=== PATIENT | female | born 1990 | race Caucasian/White ===

== ENCOUNTER 2023-06-07 08:50 | Outpatient (CLI) | payer OTHER, SELFPAY | END 2023-06-07 08:51 | disposition home or self-care (01) | PROVIDERS: Visit Provider Nurse Practitioner Family | DX: M54.9 Dorsalgia, unspecified (principal) | CPT/HCPCS: 86200 ==

== ENCOUNTER 2023-07-15 14:15 | Outpatient (CLI) | payer OTHER, SELFPAY ==
[2023-07-15 19:26] LABS: Strep A DNA Probe* NOT DETECTED (Not Detectd)
== END 2023-07-15 14:16 | disposition home or self-care (01) ==
PROVIDERS: Visit Provider Nurse Practitioner Family
DX: J02.9 Acute pharyngitis, unspecified (principal)
CPT/HCPCS: 87070; 87651

== ENCOUNTER 2023-09-22 08:30 | Outpatient (CLI) | payer OTHER, SELFPAY ==
--- NOTE | 2023-09-22 08:45 | CRLHL7_ITS ---
For Patients: As a result of the Cures Act, medical imaging exams and procedure reports are released immediately into your electronic medical record. You may view this report before your referring provider. If you have questions, please contact your health care provider. DIGITAL DIAGNOSTIC RIGHT MAMMOGRAM USING TOMOSYNTHESIS AND COMPUTER-AIDED DETECTION RIGHT AXILLARY ULTRASOUND CLINICAL HISTORY: RIGHT breast lump. COMPARISON: None. TECHNIQUE: Digital RIGHT mammogram in three projections. Tomosynthesis and CAD utilized. Real-time ultrasound imaging of RIGHT axilla with imaging documentation. BREAST COMPOSITION: The breast is heterogeneously dense, which may obscure small masses. FINDINGS: 3D RIGHT breast mammogram images submitted. No suspicious masses or architectural distortion. No suspicious calcifications. Targeted sonogram RIGHT axilla performed in area of concern. Normal lymph nodes are present. No suspicious findings. IMPRESSION: No evidence of malignancy. RECOMMENDATIONS: Age-appropriate screening mammography. Results and recommendations discussed with the patient. BI-RADS Category 2: Benign A lay language report of this examination will be provided to the patient. Dictated by Anand Lee MD @ 09/22/2023 9:39:51 AM jj/Dictated by: Anand Lee MD @ 09/22/2023 9:39:00 AM (Electronically Signed)
--- NOTE | 2023-09-22 09:15 | CRLHL7_ITS ---
For Patients: As a result of the Cures Act, medical imaging exams and procedure reports are released immediately into your electronic medical record. You may view this report before your referring provider. If you have questions, please contact your health care provider. PLEASE SEE DIGITAL DIAGNOSTIC RIGHT MAMMOGRAM PERFORMED SAME DAY CRL:[email or web address] roberts/Dictated by: Anand Lee MD @ 09/22/2023 9:39:00 AM (Electronically Signed)
== END 2023-09-22 08:31 | disposition home or self-care (01) ==
LOC: MAMMO 08:31
PROVIDERS: PCP Nurse Practitioner Family; Visit Provider Nurse Practitioner Family
DX: R22.31 Localized swelling, mass and lump, right upper limb (principal); N63.10 Unspecified lump in the right breast, unspecified quadrant
CPT/HCPCS: 76882; 77065; G0279

== ENCOUNTER 2024-01-19 15:45 | Outpatient (CLI) | payer OTHER, SELFPAY | END 2024-01-19 15:46 | disposition home or self-care (01) | PROVIDERS: PCP Nurse Practitioner Family; Visit Provider Nurse Practitioner Family | DX: N93.8 Other specified abnormal uterine and vaginal bleeding (principal) | CPT/HCPCS: 84443; 85025 ==

== ENCOUNTER 2025-01-31 15:15 | Outpatient (CLI) | payer BC, SELFPAY ==
--- NOTE | 2025-01-31 15:30 | CRLHL7_ITS ---
For Patients: As a result of the Century Cures Act, medical imaging exams and procedure reports are released immediately into your electronic medical record. You may view this report before your referring provider. If you have questions, please contact your health care provider. INDICATION: Low back pain. Lower extremity weakness TECHNIQUE: Noncontrast sagittal and axial T1, T2, and sagittal STIR sequences are provided. No comparisons. FINDINGS: The overall stature, alignment and intrinsic marrow signal of the lumbar spine is within normal limits. Conus is normal. L4-5: Trivial broad-based posterior disc bulge results in no central canal or foraminal narrowing. L5-S1: Tiny posterior central disc bulge with underlying annular tear effaces the ventral thecal sac but results in no significant central canal or foraminal narrowing. Remainder of the lumbar spine is unremarkable, specifically no evidence of suspicious central canal or foraminal narrowing. IMPRESSION: 1. Minor discogenic degenerative change at L4-5, L5-S1 resulting in no significant central canal or foraminal narrowing. Dictated by Tin Phoenix MD @ 01/31/2025 4:59:29 PM (Electronically Signed)
== END 2025-01-31 15:16 | disposition home or self-care (01) ==
LOC: MRI 15:17
PROVIDERS: PCP Nurse Practitioner Family; Visit Provider Nurse Practitioner Family
DX: M79.606 Pain in leg, unspecified (principal); M51.369 Other intervertebral disc degeneration, lumbar region without mention of lumbar back pain or lower extremity pain; M54.50 Low back pain, unspecified
CPT/HCPCS: 72148

== ENCOUNTER 2025-02-22 19:54 | Outpatient (CLI) | payer BC, SELFPAY ==
--- OUTSIDE RECORDS SUMMARY | 2025-02-22 08:34 | XMS_ITS | Clinical Summary ---
Author Organization [employer] [facility] Address [address] [place] [id number] Care Team Providers Care District Supervisor Name Role Phone [facility] - Primary Ca re Provider Allergies No known active allergies Medications vit/iron fum/folic ac ( 1 + 1 ORAL)Indication s: Take 1 Tablet by mouth. Active dibucaine 1% topical (NUPERCAINAL) 1 % ointmentIndicat ions:Vaginal delivery (HC) Apply topically to affected area(s) each time if needed (discomfort - swelling). 28 g 2 Active glycerin-witch iBanka (TUCKS) padIndications: Vaginal delivery (HC) Apply 1 Applicator topically to affected area(s) every hour while awake as needed (itching). 100 Each 2 Active ibuprofen (ADVIL; MOTRIN) 400 mg tabletIndicatio ns:Vaginal delivery (HC) Take 1-2 Tablets (400-800 mg) by mouth every 6 hours if needed for Pain (For moderate pain). 30 Tablet 2 Active ibuprofen (ADVIL; MOTRIN) 600 mg tabletIndicatio ns:Vaginal delivery (HC) Take 1 Tablet (600 mg) by mouth every 6 hours if needed for Pain. Maximum of 3200 mg in 24 hours. 30 Tablet 2 Active oxyCODONE (ROXICODONE) 5 mg immediate release tabletIndicatio ns:S/P tubal ligation Take 1-2 Tablets (5-10 mg) by mouth every 4 hours if needed for Pain (For moderate to severe pain not controlled with ibuprofen and acetaminophen.) . 5 Tablet 2 Active Active Problems Problem Noted Date Diagnosed Date Vaginal delivery 11/26/2021 Trauma during 11/17/2021 Overview (11/17/2021): Fall Encounter for supervision of other normal , unspecified trimester 03/22/2019 Overview (11/17/2021): [id number], history of 1 VAVD for prolonged second stage followed by JACOB: by LMP and FTU Rubella immune, Rh pos anatomy scan: normal, anterior placenta, male OGTT: 113 Hb at 28 weeks: 12.0 Tdap on: 09/11/2021 GBS: pending 11/03 Covid Vaccine: completed x3 Influenza vaccine: 05/21/21 PPBC: Resolved Problems Problem Noted Date Diagnosed Date Resolved Date Vaginal delivery 10/17/2019 11/17/2021 Appendicitis 03/26/2016 10/17/2019 Immunizations Immunization Administration Dates Next Due DTP 12/08/1992, 2,1991,07/20 DTaP 12/08/1995 HIB PRP-OMP (PedvaxHIB) 08/21/1992,11/08,1991,07/20 Hepatitis B, Unspecified 06/24/2004,01/23/2004,0 12/23/2003 Human Papilloma Virus Vaccine 01/22/2008, 008,07/31/2007 Influenza Virus, Unspecified 06/01/2017, 08/15/2013,07/18/2010,05/30 Influenza, IIV4 06/01/2017 Influenza, Injectable, Mdck, Quadrivalent, W/preservative 2021 MMR 12/23/2003,08/21/1992 Meningococcal Vaccine (Menactra) 03/17/2010 Oral Polio Vaccine 12/08/1995, 3,1991,07/20 Td (Age >=7 Years) 12/23/2003 Tdap 09/11/2021, 9,09/22/2017,08/15 Tetanus/Diptheria 08/15/2013 Family History Medical History Relation Name Comments Good Health Brother Good Health Father Good Health Mother Relation Name Status Comments Brother Father Mother Social History Tobacco Use Types Packs/Day Years Used Date Smoking Tobacco: Never Smokeless Tobacco: Never Tobacco Cessation:Counseling Given: Yes Alcohol Use Standard Drinks/Week Comments Not Currently 3 (1 standard drink = 0.6 oz pur e alcohol) socially Comments No Sex and Gender Information Value Date Recorded Sex Assigned at Not on file Legal Sex Female 6:59 AM COLD FOOD PACKER Gender Identity Not on file Sexual Orientation Not on file Occupation Industry Job Start Date Job End Date student Not on file Not on file Not on file Obstetrics History Para Term AB IAB SAB Ectopic Multiple Livin g Live Births 3 3 3 0 0 0 0 0 0 3 3 Date Outcome GA Total Labor Labor/2nd/3rd Weight Sex Type Anes PTL Danielle A1 A5 Name Clin 2017 Term 39w 2d 2.93 kg (6 lb 7.4 oz) F Vag-V acuum Epidur al,IV Meds N Livin g 7 9 ROD ,BG JOSEPHINE Carrillo on Complications:None Delivery Location:[facility] ([facility]) 2019 Term 39w 3d 3.58 kg (7 lb 14.3 oz) M Vag Epidur al N Livin g 6 9 ROD ,NANCY Carrillo on Complications:None Delivery Location:[facility]) 2021 Term 39w 0d 5h 11m 5h 01m/0h 07m/0h 03m 3.64 kg (8 lb 0.4 oz) M Vag-S pont Epidur al Livin g 8 9 WANALANIS ,Osvaldo Rm MD Complications:None Delivery Location:Hospital ( [facility] IP) Last Filed Vital Signs Vital Sign Reading Time Taken Comments Blood Pressure 99/57 11/28/2021 8:00 AM CDT Pulse 69 11/28/2021 8:00 AM CDT Temperature 36.6 C (97.8 F) 11/28/2021 8:00 AM CDT Respiratory Rate 18 11/28/2021 8:00 AM CDT Oxygen Saturation 99% 11/27/2021 5:00 PM CDT Inhaled Oxygen Concentration - - Weight 80 kg (176 lb 5.9 oz) 09/10/2019 10:50 AM COLD FOOD PACKER Height 162.6 cm (5' 4) 11/17/2021 9:23 AM CDT Body Mass Index 29.35 09/10/2019 10:50 AM COLD FOOD PACKER Plan of Treatment Health Maintenance Due Date Last Done Comments Depression screening for age 12+ 2003 Hepatitis C screening for age 18-79 2009 BMI (ht and wt on same day) for age 18+ 03/09/2018 03/09/2017 Pap test for age 21-65 09/12/2018 09/12/2015, 2015 COVID-19 vaccine series ( season) 2024 07/01/2021, 11/04/2020, 10/08/2020 Influenza Vaccine (Season Ended) 2025 2021, 06/01/2017, 06/01/2017, Additional history exists Tetanus booster 09/11/2031 09/11/2021, 07/07, 09/22/2017, Additional history exists Hepatitis B series for 19+ Completed 06/24, 01/23/2004, 12/23/2003 HIV for age 15-65 Completed 04/28/2021, 03/05/2021 Tdap Completed 09/11/2021, 07/07, 09/22/2017, Additional history exists Pneumococcal series for age 6-49 Aged Out No longer eligible based on patient's age to complete this topic Procedures Procedure Name Priority Date/Time Associated Diagnosis Comments HIV EXTERNAL Routine 04/28/2021 RESIDENTIAL INSTALLER THIN PREP PAP SCREEN IMAGED Routine 09/12/2015 8:30 AM COLD FOOD PACKER from Last 3 Months or Most Recently Relevant to Health Maintenance Results * HIV EXTERNAL (04/28/2021) EXTERNAL HIV Negative OTHER-N OT LISTED-ADD NARRATIVE DETAILS Blood BLOOD SPECIMEN / Unknown Narrative Resulting Agency Comment Notice: This testing was ordered by an outside provider and performed by [facility] @ [place]. The original result report can be found in the patient record as a CareEverywhere 04/28/21 result from 11/03/21. Chitra Palafox RN .................... 11/17/2021 11:18 AM us Gita Solomon MD LABORATORY Final R esult OTHER-NOT LISTED-ADD NARRATIVE DETAILS * RESIDENTIAL INSTALLER THIN PREP PAP SCREEN IMAGED (09/12/2015 8:30 AM COLD FOOD PACKER) RESIDENTIAL INSTALLER CYTOLOGY See Anatomic Pathology case 09/17/2015 8:00 PM COLD FOOD PACKER [facility] Specimen (specimen) (Cervical) Client Collect / Unknown 09/12/2015 8:30 AM COLD FOOD PACKER 09/12/2015 7:16 PM COLD FOOD PACKER us Nita May MD PATHOLOGY/CYTOLOGY Final Result [facility] [address] [place] [address], [place] from Last 3 Months or Most Recently Relevant to Health Maintenance Insurance PREFERRED ONE-OPEN ACCESS PREFERRED ONE-OPEN ACCESS PREFERRED ONE-OPEN ACCESS Advance Directives * Full Code (Latest Code Status on File) Date Activated Date Inactivated Comments 11/26/2021 1:09 PM 11/28/2021 2:40 PM Question Answer Comments Code Status Discussion: Discussed * Full Code Date Activated Date Inactivated Comments 10/17/2019 10:46 AM 10/19/2019 12:00 PM Question Answer Comments Code Status Discussion: Discussed * Full Code Date Activated Date Inactivated Comments 12/08/2017 7:20 PM 12/10/2017 1:21 PM * Full Code Date Activated Date Inactivated Comments 12/07/2017 4:58 PM 12/07/2017 5:28 PM * Full Code Date Activated Date Inactivated Comments 12/03/2017 1:45 PM 12/03/2017 4:59 PM Question Answer Comments Code Status Discussion: Not Discussed Care Teams District Supervisor Relationship Specialty Start Date End Date [facility] - PCP - General 06/29/21
--- OUTSIDE RECORDS SUMMARY | 2025-02-23 00:19 | XMS_ITS | Clinical Summary ---
Author Organization [facility] Address [address] [place] [id number] Care Team Providers Care Technical Supervisor Name Role Phone [facility] - Primary Ca re Provider Allergies No known active allergies Medications vit/iron fum/folic ac ( 1 + 1 ORAL)Indication s: Take 1 Tablet by mouth. Active dibucaine 1% topical (NUPERCAINAL) 1 % ointmentIndicat ions:Vaginal delivery (HC) Apply topically to affected area(s) each time if needed (discomfort - swelling). 28 g 2 Active glycerin-witch Bianka (TUCKS) padIndications: Vaginal delivery (HC) Apply 1 [...] normal , unspecified trimester 03/22/2019 Overview (11/17/2021): [id number], history of 1 VAVD for prolonged second [...] on file Legal Sex Female 6:59 AM PREBOARDER Gender Identity Not on file Sexual Orientation [...] ROD ,BG JOSEPHINE Carrillo on Complications:None Delivery Location:[facility] ([facility] IP) 2019 Term 39w 3d 3.58 kg (7 lb 14.3 oz) M Vag Epidur al N Livin g 6 9 ROD ,NANCY Carrillo on Complications:None Delivery Location:[facility]) 2021 Term 39w 0d 5h 11m 5h 01m/0h 07m/0h 03m 3.64 kg (8 lb 0.4 oz) M Vag-S pont Epidur al Livin g 8 9 WANALANIS ,Osvaldo Rm MD Complications:None Delivery Location:Hospital ( [facility]) Last Filed Vital Signs [...] (176 lb 5.9 oz) 09/10/2019 10:50 AM PREBOARDER Height 162.6 cm (5' 4) 11/17/2021 9:23 AM CDT Body Mass Index 29.35 09/10/2019 10:50 AM PREBOARDER Plan of Treatment Health Maintenance Due Date [...] Associated Diagnosis Comments HIV EXTERNAL Routine 04/28/2021 FIRST HELPER THIN PREP PAP SCREEN IMAGED Routine 09/12/2015 8:30 AM PREBOARDER from Last 3 Months or Most Recently Relevant to Health Maintenance Results * HIV EXTERNAL (04/28/2021) EXTERNAL HIV Negative OTHER-N OT LISTED-ADD NARRATIVE DETAILS Blood BLOOD SPECIMEN / Unknown Narrative Resulting Agency Comment Notice: This testing was ordered by an outside provider and performed by [facility] @ [place]. The original result report can be found in the patient record as a CareEverywhere 04/28/21 result from 11/03/21. Chitra Palafox RN .................... 11/17/2021 11:18 AM us Gita Solomon MD LABORATORY Final R esult OTHER-NOT LISTED-ADD NARRATIVE DETAILS * FIRST HELPER THIN PREP PAP SCREEN IMAGED (09/12/2015 8:30 AM PREBOARDER) FIRST HELPER CYTOLOGY See Anatomic Pathology case 09/17/2015 8:00 PM PREBOARDER [facility] Specimen (specimen) (Cervical) Client Collect / Unknown 09/12/2015 8:30 AM PREBOARDER 09/12/2015 7:16 PM PREBOARDER us Nita May MD PATHOLOGY/CYTOLOGY Final Result [facility] [address] [place] [address], [place] from Last 3 Months or Most [...] Code Status Discussion: Not Discussed Care Teams Technical Supervisor Relationship Specialty Start Date End Date [facility] - PCP - General 06/29/21
== END 2025-02-22 19:55 | disposition home or self-care (01) ==
PROVIDERS: PCP Nurse Practitioner Family; Visit Provider Nurse Practitioner Family
DX: M79.671 Pain in right foot (principal); R53.83 Other fatigue; Z11.8 Encounter for screening for other infectious and parasitic diseases
CPT/HCPCS: 85651; 86038; 86140; 86200; 86431; 86618; 86812